=== PATIENT | female | born 2000 | race Caucasian/White ===

== ENCOUNTER 2020-12-12 12:19 | Inpatient (IN) | payer SELFPAY ==
[2020-12-12 12:54] VITALS: BP 110/67; PULSE 89; RESP 16; TEMP 36.5; O2SAT 99
[2020-12-12 13:23] VITALS: BMI 35.4
[2020-12-12 14:00] VITALS: BP 110/75; PULSE 68; RESP 17; TEMP 36.5; O2SAT 96
[2020-12-12] MEDS: nicotine 2 mg Gum BUCCAL ×3 (14:35→22:23)
--- NOTE | 2020-12-12 15:18 | PC.NURSE ---
Patient is a 20 year old female as a direct admit from [facility]. Patient presents with increased depression and SI thoughts. Patient does not currently have a plan at this time. Patient is currently having financial and relationship stresses causing her to have more depression than normal. Patient denies any alcohol use or drug use. Patient has bilateral nose rings, naval ring, and dath piercing in place. Patient became tearful about removal of piercings.
[2020-12-12 20:53] VITALS: BP 118/81; PULSE 97; RESP 18; TEMP 37.2; O2SAT 97
[2020-12-13 06:00] VITALS: BP 107/75; PULSE 102; RESP 16; TEMP 36.5; O2SAT 95
[2020-12-13] MEDS: levothyroxine 137 mcg Tablet PO (09:25)
[2020-12-13] MEDS: nicotine 2 mg Gum BUCCAL ×3 (09:56→23:18)
[2020-12-13] MEDS: BuSPIRONE 10 mg Tablet 15 MG PO ×2 (12:07→18:15)
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
[2020-12-13 14:00] VITALS: BP 114/80; PULSE 101; RESP 17; TEMP 37.1; O2SAT 96
[2020-12-13 21:00] VITALS: BP 111/82; PULSE 91; RESP 20; TEMP 36.3; O2SAT 96
[2020-12-14 06:00] VITALS: BP 102/77; PULSE 84; RESP 18; TEMP 36.4; O2SAT 96
[2020-12-14] MEDS: BuSPIRONE 10 mg Tablet 15 MG PO ×2 (09:19→17:48)
[2020-12-14] MEDS: levothyroxine 137 mcg Tablet PO (09:20)
[2020-12-14] MEDS: nicotine 2 mg Gum BUCCAL ×2 (12:13→20:21)
--- NOTE | 2020-12-14 12:32 | NPU.GN ---
[facility] Group Topic:Depression General Mood of Group: Maria Alejandra participated in Group today. Maria Alejandra was on time to group, dressed appropriately, she was well groomed and had good hygiene. We played [employer], at the end of the game, everyone was asked to write a number for how many of the symptoms they are having on top. Alex wrote her number down, we discussed the different symptoms of depression and how the symptoms listed that pertained to them are a way to know where to start when speaking with the doctor. It was also discussed the importance of following up with their mental health care, discussed ways to make appointments to see a mental health provider, ways to speak with their doctor about their symptoms.
[2020-12-14 14:00] VITALS: BP 122/77; PULSE 95; RESP 16; TEMP 36.9; O2SAT 97
--- NOTE | 2020-12-14 15:12 | P.PN_ITS ---
Subjective NPU Subjective: Interval history: Maria Alejandra presents today reporting that things are going better compared to yesterday. She was very goal-directed today as she was feeling better overall and wondering whether we would be able to help her with the paperwork that he has been filled out for work. Essentially she needs [facility] paperwork however she does not qualify for [place] because she has been with the [employer] for a year and so there is other paperwork for nonqualified [place] people that they have given her. Additionally she is starting to feel like she might be able to face the challenges and stressors that led to her presentation. We agreed to review the possibility of discharge in the morning. Mental Status Exam MSE Comments: This is an overweight versus obese, white female, with adequate dress, grooming, and eye contact. No abnormal movements. Cooperative with exam in no acute distress. Speech was more normal rate and volume. Mood described as a little better; affect congruent. Thought process, organized. Thought content: patient denied any suicidal or homicidal ideation, there were no delusions reported or noted, patient denied any auditory or visual hallucinations. At tention, concentration, and memory appear intact but none were formally tested. She is alert and oriented times three. Insight and judgment are good. Vitals/I&O/Wt Last Vital Signs Temp 98.2 F 12/14/20 20:13 Pulse 97 12/14/20 20:13 Resp 18 12/14/20 20:13 BP 106/73 12/14/20 20:13 Pulse Ox 98 12/14/20 20:13 A&P Additional A&P Information This is a 20 year old, white female, with a long history of trauma, depression, anxiety and mental health treatment for seven to eight years, with some genetic loading for mental health issues, who presents off of medication but open to medication trial. 1. Continue current medication. 2. Make sure that she is restarted on her Synthroid. 3. Encourage individual, group, and milieu therapy. 4. Continue q-15 minute checks for safety. 5. We will make sure we get her work paperwork faxed over at the beginning of the week. Involuntary Hold Information 96 Hour Hold: 96 Hour Involuntary Admission: No Attestations NPU Medical Necessity Statement*: Inpatient hospitalization is medically necessary and the clinically appropriate intervention, at this time. We will monitor medications and make changes as indicated. Likely length of stay is 1-3 days. Coding Level of Care Code Acute Judo Instructor for Stephanie Batres
[2020-12-14 20:13] VITALS: BP 106/73; PULSE 97; RESP 18; TEMP 36.8; O2SAT 98
[2020-12-15 06:00] VITALS: BP 105/79; PULSE 82; RESP 17; TEMP 36.6; O2SAT 100
[2020-12-15] MEDS: levothyroxine 137 mcg Tablet PO (08:06)
[2020-12-15] MEDS: BuSPIRONE 10 mg Tablet 15 MG PO (08:06)
[2020-12-15] MEDS: nicotine 2 mg Gum BUCCAL (11:10)
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
[2020-12-15 14:09] VITALS: BP 105/79; PULSE 82; RESP 17; TEMP 36.6; O2SAT 100
--- NOTE | 2020-12-17 16:29 | PC.RESP ---
SMOKING CESSATION INFORMATION SENT TO PATIENT.
== END 2020-12-15 15:30 | disposition home or self-care (01) | DRG 881 ==
PROVIDERS: Admitting Provider Psychiatry & Neurology Child & Adolescent Psychiatry; Visit Provider Psychiatry & Neurology Psychiatry
DX: F32.9 Major depressive disorder, single episode, unspecified (principal); F41.9 Anxiety disorder, unspecified; F17.210 Nicotine dependence, cigarettes, uncomplicated; E66.9 Obesity, unspecified; Z68.35 Body mass index [BMI] 35.0-35.9, adult; Z79.890 Hormone replacement therapy; Z88.2 Allergy status to sulfonamides; Z81.8 Family history of other mental and behavioral disorders; Z63.0 Problems in relationship with spouse or partner